=== PATIENT | female | born 1980 | race Caucasian/White ===

== ENCOUNTER 2017-12-08 13:17 | Emergency (ER) | payer OTHER ==
[~2017-12-08] VITALS: Ht 147.3 cm; Wt 80.3 kg
[2017-12-08 13:21] VITALS: Ht 147.3 cm; Wt 80.3 kg
[2017-12-08 16:01] VITALS: BP 158/60
== END 2017-12-08 16:01 | disposition home or self-care (01) ==
LOC: ED 13:17
DX: R51 Headache (principal); R11.2 Nausea with vomiting, unspecified
CPT/HCPCS: J1885; Q0162